=== PATIENT | male | born 1985 | race Caucasian/White ===

== ENCOUNTER 2018-05-31 01:08 | Emergency (ER) | payer SELFPAY ==
[~2018-05-31] VITALS: Ht 170.2 cm; Wt 70.0 kg
--- NOTE | 2018-05-31 01:30 | NUR ---
PT IS EXTREMELY INTOXICATED AND NEEDS TO BE CONTINUOUSLY REEDUCATED ON NOT GETTING OUT OF BED. PT IS RESPONSIVE TO VOICE AND NAME, BUT IS REFUSIGN TO ANSWER QUESTIONS FOR STAFF. MOST OF TRIAGE AND CLINICAL SCREEN NOT ACCOMPLISHED, DUE TO UNCOOPERATIVE PT.
[2018-05-31 01:37] LABS: BASOPHILS # (AUTO) 0.04 x10^3/uL (0-0.1); BASOPHILS % (AUTO) 1 % (0-1); EOSINOPHILS # (AUTO) 0.72 x10^3/uL (0-0.4); EOSINOPHILS % (AUTO) 10 % (1-7); LYMPHOCYTES # (AUTO) 2.25 x10^3/uL (1-3.4); LYMPHOCYTES % (AUTO) 30 % (22-44); MD NO; MEAN CORPUSCULAR HEMOGLOBIN 29.7 pg (27.5-34.5); MEAN CORPUSCULAR HGB CONC 34.1 g/dL (33.2-36.2); MEAN PLATELET VOLUME 7.4 fL (7.4-10.4); MONOCYTES # (AUTO) 0.51 x10^3/uL (0.2-0.8); MONOCYTES % (AUTO) 7 % (2-9); NEUTROPHILS % (AUTO) 53 % (42-75); PLATELET COUNT 294 x10^3/uL (130-400); RED BLOOD COUNT 5.13 x10^6/uL (4.38-5.82); RED CELL DISTRIBUTION WIDTH 13.3 % (9.4-14.8)
[2018-05-31 01:49] LABS: ALANINE AMINOTRANSFERASE 28 U/L (12-78); ALBUMIN 4.4 g/dL (3.4-5.0); ANION GAP 7 mmol/L (5-15); CALCIUM 8.3 mg/dL (8.5-10.1); CHLORIDE 110 mmol/L (98-107); CREATININE 0.88 mg/dL (0.7-1.3); SALICYLATE LEVEL 2.1 mg/dL (2.8-20.0)
[2018-05-31 01:51] LABS: ALKALINE PHOSPHATASE 67 U/L (45-117); BILIRUBIN,TOTAL 0.5 mg/dL (0.2-1.0); TOTAL PROTEIN 7.5 g/dL (6.4-8.2)
[2018-05-31 01:54] LABS: ACETAMINOPHEN < 2 mcg/mL (10-30)
[2018-05-31 02:01] LABS: AMPHETAMINE SCREEN, URINE Negative (Negative); BARBITURATE SCREEN, URINE Negative (Negative); BENZODIAZEPINE SCREEN, URINE Negative (Negative); CANNABINOID SCREEN, URINE Positive (Negative); COCAINE SCREEN, URINE Positive (Negative); METHADONE SCREEN, URINE Negative (Negative); OPIATE SCREEN, URINE Positive (Negative)
[2018-05-31 02:40] VITALS: BP 143/76
--- NOTE | 2018-05-31 02:41 | NUR ---
PT SLEEPING COMFORTABLY ON GURNEY. RR EVEN AND UNLABORED. NADN. VSS. SPO2 CABLE IN PLACE.
--- NOTE | 2018-05-31 03:59 | NUR ---
PT SLEEPING COMFORTABLY ON GURNEY. RR EVEN AND UNLABORED. NADN. VSS. SPO2 CABLE IN PLACE.
--- NOTE | 2018-05-31 05:42 | NUR ---
PT AMB W/ STEADY GAIT TO D/C. ALL QUESTIONS AND CONCERNS ADDRESSED AT THIS TIME. ALL BELONGINGS W/ PT UPON D/C. GIVEN TAXI [facility]OUCHER HOME.
== END 2018-05-31 05:44 | disposition home or self-care (01) ==
LOC: ED 05:38
DX: F10.120 Alcohol abuse with intoxication, uncomplicated (principal); F12.10 Cannabis abuse, uncomplicated; F14.10 Cocaine abuse, uncomplicated
CPT/HCPCS: 36415; 80053; 80307; 80329; 85025; 99283; G0480

== ENCOUNTER 2018-06-02 08:43 | Emergency (ER) | payer SELFPAY ==
[~2018-06-02] VITALS: Ht 185.4 cm; Wt 74.0 kg
--- NOTE | 2018-06-02 10:03 | NUR ---
PT TO ED FOR N/V AND CHILLS X3 DAYS. PT STATES HE DRANK TOO MUCH FRIDAY NIGHT AND WOKE UP FRIDAY IN THIS ED WITH NO RECOLLECTION OF HOW HE GOT HERE AND HAS BEEN FEELING ILL SINCE THEN. PT STATES HE THINKS HE GOT "ALCOHOL POISONING" AND IS NOW WITHDRAWING. PT APPEARS UNCOMFORTABLE AND COLD. BLANKET PROVIDED. CONNECTED TO MONITORS. VSS. AWAITING MD ASSESSMENT.
[2018-06-02] MEDS ORDERED: ONDANSETRON 2MG/ML, 2ML ONE (10:26)
[2018-06-02] MEDS ORDERED: LORazepam 2 MG/ML, 1ML ONE (10:27)
[2018-06-02] MEDS ORDERED: SODIUM CHLORIDE FLUSH 10ML SYR IVF ONE (10:30)
[2018-06-02] MEDS ORDERED: LORazepam 2 MG/ML, 1ML IVPush ONE (10:30)
[2018-06-02] MEDS ORDERED: ONDANSETRON 2MG/ML, 2ML IVPush ONE (10:30)
[2018-06-02] MEDS ORDERED: SODIUM CHLORIDE 0.9% 1,000ML IVBOLUS ONE (10:30)
[2018-06-02 10:31] LABS: BASOPHILS # (AUTO) 0.01 x10^3/uL (0-0.1); BASOPHILS % (AUTO) 0 % (0-1); EOSINOPHILS # (AUTO) 0.04 x10^3/uL (0-0.4); EOSINOPHILS % (AUTO) 1 % (1-7); LYMPHOCYTES % (AUTO) 8 % (22-44); MD NO; MEAN CORPUSCULAR HEMOGLOBIN 29.2 pg (27.5-34.5); MEAN CORPUSCULAR HGB CONC 33.9 g/dL (33.2-36.2); MEAN CORPUSCULAR VOLUME 86.1 fL (81-97); MEAN PLATELET VOLUME 7.6 fL (7.4-10.4); MONOCYTES # (AUTO) 0.38 x10^3/uL (0.2-0.8); MONOCYTES % (AUTO) 5 % (2-9); NEUTROPHILS # (AUTO) 6.72 x10^3/uL (1.8-6.8); NEUTROPHILS % (AUTO) 87 % (42-75); PLATELET COUNT 313 x10^3/uL (130-400); RED BLOOD COUNT 5.58 x10^6/uL (4.38-5.82); RED CELL DISTRIBUTION WIDTH 13.5 % (9.4-14.8)
--- NOTE | 2018-06-02 10:33 | NUR ---
MD ASSESSMENT COMPLETE. ORDERS RECEIVED. IV ESTABLISHED AND LABS DRAWN. PT MEDICATED PER MAY. VSS. AWAITING RESULTS.
[2018-06-02 10:43] LABS: ALANINE AMINOTRANSFERASE 35 U/L (12-78); ALBUMIN 4.5 g/dL (3.4-5.0); ANION GAP 9 mmol/L (5-15); CALCIUM 9.2 mg/dL (8.5-10.1); CHLORIDE 108 mmol/L (98-107); CREATININE 0.99 mg/dL (0.7-1.3)
[2018-06-02 10:44] LABS: ALKALINE PHOSPHATASE 73 U/L (45-117); BILIRUBIN,TOTAL 1.9 mg/dL (0.2-1.0); TOTAL PROTEIN 8.1 g/dL (6.4-8.2)
[2018-06-02 11:37] VITALS: BP 118/56
--- NOTE | 2018-06-02 11:38 | NUR ---
pt resting in room wtih lights dimmed. vss. all results back at this time. chart up for recheck.
== END 2018-06-02 12:34 | disposition home or self-care (01) ==
LOC: ED 12:30
DX: R11.2 Nausea with vomiting, unspecified (principal)
CPT/HCPCS: 36415; 80053; 83605; 83690; 85025; 96361; 96374; 96375; 99283; J2060; J2405; J7030